=== PATIENT | female | born 1960 | race Caucasian/White ===

== ENCOUNTER → 2017-02-13 | Outpatient (CLI) | payer OTHER ==
[~2017-02-13] VITALS: Ht 167.6 cm; Wt 58.1 kg
[~2017-02-13] MED LIST: ADDERALL 15 MG15 MG PO; ASPIR 8181 MG PO; MAGOX 400400 MG PO; TRAMADOL 50 MG50 MG PO; VITAMIN D1000 UNI1 PO
--- NOTE | ~2017-02-13 | P ---
[facility] [place] [address] PROCEDURE REPORT Name: PONCHO SOUTH V Room [facility]: [facility] [id number] Admission: 02/13/17 Attend Phys: Gunner Clark MD Discharge: Date of : 58 Report #: [id number] THIS REPORT FOR: //name// CC: Gunner Douglas MD BRIEF HISTORY: The patient is a 56-year-old woman with family history of colon cancer in both grandmothers. Multiple first degree relatives had colon polyps and her brother had an advanced adenoma. PREOPERATIVE DIAGNOSIS: Family history of colon cancer and colon polyps. POSTOPERATIVE DIAGNOSES: 1. Multiple colon polyps. 2. Sigmoid diverticulosis coli. MEDICATIONS: Deep sedation with propofol per anesthesia. SPECIMENS: 1. Cecal polyp. 2. Distal ascending colon polyp. 3. Hepatic flexure polyp. ESTIMATED BLOOD LOSS: 3 mL. PROCEDURE: Colonoscopy to cecum and terminal ileum with saline assisted snare polypectomy. FINDINGS: Prior to propofol sedation, the procedure of colonoscopy was discussed with the patient as well as potential risks, benefits, and complications. She indicates she understands and desires to proceed. With the patient in left lateral decubitus position, digital examination was completed, which revealed no abnormalities. Subsequently, the DotAlign video colonoscope was introduced into the rectum and advanced under direct vision to the cecum. Done with minimal difficulty. The cecum was identified by the ileocecal valve and the appendiceal orifice. I was able to visualize the distal segment of terminal ileum, which was inspected and noted to be unremarkable. At that point, the scope was slowly withdrawn and careful circumferential views were obtained. The prep was good. The mucosa was within normal limits, normal vascular pattern, and normal light reflex. As we slowly withdrew the scope, the mucosa was inspected. In the distal aspect of the cecum, a flat oblong 1-cm mucus covered polyp was seen and removed by saline assisted snare polypectomy. The scope was further advanced in the distal ascending colon, another fairly flat polyp was seen, it was about 3 mm x 6 mm and removed by cold snare polypectomy and recovered. Scope was further withdrawn and a 6-8 mm sessile, [facility] [address] [place] [address] PROCEDURE REPORT Name: PONCHO SOUTH V Room #: REG [facility] Lexa.#: [id number] Admission: 02/13/17 Attend Phys: Gunner Clark MD Discharge: Date of : 58 Report #: [id number] mucus covered polyp was seen in the hepatic flexure, removed with several passes with cold and hot snares. Scope was further withdrawn. No additional polyps were seen. It was noted that the colon was mildly diffusely dilated suggesting chronic constipation. Obstructing lesion was not seen. The scope was further withdrawn and she was noted have moderate sigmoid diverticular disease without endoscopic evidence of diverticulitis. Scope was withdrawn in the rectum. Upon retroflexion, no abnormalities were seen. Scope was withdrawn. The patient tolerated the procedure well. CONDITION OF THE PATIENT UPON DISCHARGE: Following procedure, the patient drowsy, aroused, conversant and will be discharged home when fully ambulatory. INSTRUCTIONS TO THE PATIENT AND FAMILY AT THE TIME OF DISCHARGE: The patient with multiple colon polyps as described above. Due to her family history, especially finding of flat polyps, I would suggest followup colon exam in 3 years. I suggest high fiber diet for diverticular disease. Also, for constipation issue, use of MiraLax potentially on a regular basis would be reasonable. By: [id number] Gunner Clark MD /nt
--- NOTE | ~2017-02-13 | S ---
[facility] [place] [address] SURGICAL PATH RPT PROCEDURE Name: PONCHO RODAS V Room #: REG [facility] Lexa.#: [id number] Admission: 02/13/17 Date of : 58 Discharge: Report #: [id number] Path Case #: [id number] PATHOLOGY REPORT COLLECTION DATE: 02/13/2017 RECEIVED DATE: 02/13/2017 SUBMITTING PHYS: Dr. Gunner Clark OTHER PHYS: Dr. Qasim Douglas SPECIMEN(S) RECEIVED: A.Cecal polyp B.Distal ascending colon polyp C.Hepatic flexure polyp * * * * * * * * * * * * FINAL DIAGNOSIS: A. Cecal polyp: - Hyperplastic polyp B. Distal ascending colon polyp: - Tubular adenoma, fragments. - Negative for high grade dysplasia. C. Hepatic flexure polyp: - Hyperplastic polyp. PATHOLOGIST: Qasim Lee M.D. REPORT ELECTRONICALLY SIGNED BY: Qasim Lee M.D. DATE/TIME: 02/14/2017 12:29 * * * * * * * * * * * * GROSS PATHOLOGY: A. The specimen is received in formalin, labeled "Poncho Rodas and cecal polyp", is a whitaker polypoid soft tissue 1.5 x 0.7 x 0.2 cm, inked blue, serially sectioned and entirely submitted in A1. B. The specimen is received in formalin, labeled " Poncho Rodas and distal ascending colon polyp.", are several whitaker soft tissue the aggregate measure 0.7 x 0.4 x 0.2 cm, entirely submitted in B1. C. The specimen is received in formalin, labeled " Poncho Rodas and hepatic flexure polyp", are several whitaker soft tissue the aggregate measure 0.5 x 0.5 x 0.2 cm, entirely submitted in C1. (SWS; 02/13/2017) CLINICAL HISTORY: Family history colon cancer, colon polyps, diverticulosis INITIAL CPT CODE(S): [facility] [address] [place] [address] SURGICAL PATH RPT PROCEDURE Name: PONCHO RODAS V Room #: REG [facility].#: [id number] Admission: 02/13/17 Date of : 58 Discharge: Report #: [id number] Path Case #: [id number]; [id number] B; [id number] C; [id number] Professional services performed by [facility] at [address], [place] [address] Technical services performed by [facility] at [address] [place] [address], [facility] [address] [address]. [facility] [address] [place] [address] PHONE: [phone] DIRECTOR: Rafael Galeana M.D. * * * END OF REPORT * * *
== END | disposition home or self-care (01) ==
LOC: GI 08:16
DX: D12.2 Benign neoplasm of ascending colon (principal); D12.3 Benign neoplasm of transverse colon; K63.5 Polyp of colon; K57.30 Diverticulosis of large intestine without perforation or abscess without bleeding; Z98.890 Other specified postprocedural states; Z96.641 Presence of right artificial hip joint; Z88.5 Allergy status to narcotic agent; Z88.8 Allergy status to other drugs, medicaments and biological substances; Z79.82 Long term (current) use of aspirin
CPT/HCPCS: 62110; 62900

== ENCOUNTER → 2017-03-06 | Outpatient (CLI) | payer OTHER ==
[~2017-03-06] VITALS: Ht 167.6 cm; Wt 58.1 kg
[~2017-03-06] MED LIST changes: +LYRICA 50 MG50 MG PO
--- NOTE | ~2017-03-06 | P ---
[facility] [place] [address] PROCEDURE REPORT Name: PONCHO SOUTH V Room #: REG [facility] [id number] Admission: 03/06/17 Attend Phys: Gunner Clark MD Discharge: Date of : 58 Report #: [id number] THIS REPORT FOR: //name// CC: Gunner Douglas BRIEF HISTORY: The patient is a 56-year-old woman with atypical chest pain. Symptoms started after a recent colonoscopy with retrosternal pain. Recent ultrasound of the gallbladder was nondiagnostic. She has had partial relief of symptoms with intermittent use of PPIs. PREOPERATIVE DIAGNOSES: 1. Atypical chest pain. 2. Intermittent solid food dysphagia. POSTOPERATIVE DIAGNOSES: 1. A 2-3 cm sliding type hiatus hernia. 2. Mild erythematous gastritis without ulcer. 3. Solid food dysphagia without obvious stricturing. MEDICATIONS: Deep sedation with propofol for anesthesia. SPECIMEN: Biopsies of gastritis. ESTIMATED BLOOD LOSS: 3 mL. PROCEDURE: EGD with biopsy, Riggs dilation. FINDINGS: Prior to propofol sedation, the procedure of upper endoscopy and dilation were discussed with the patient as well potential risks and its complications. She indicates she understands and desires to proceed. DESCRIPTION OF PROCEDURE: With the patient in left lateral decubitus position, Fuji video endoscope was inserted in the cervical esophagus under direct vision without difficulty. Examination of this organ through its entire length revealed normal esophageal mucosa down the squamocolumnar junction. Squamocolumnar junction was inspected and noted to be unremarkable. Intermittently, a 3 cm sliding type hiatus hernia was seen. Even though she had a hernia, erosive changes or changes of Winston's were not seen. She has had dysphagia and obvious stricturing was not seen. Scope was advanced in the stomach, was examined on end view as well as retroflexed views. She does have erythema, but no ulcers or erosions. No retained solids or liquids in the stomach. Upon retroflexion, the hiatus hernia was seen, but no mass lesions were seen. The pylorus, duodenal bulb, and postbulbar sweep were all inspected and noted to be within normal limits. At that point, the scope was slowly withdrawn and careful circumferential views confirmed the above findings. The [address] [address] PROCEDURE REPORT Name: PONCHO SOUTH V Room #: REG Patrick Meza#: [id number] Admission: 03/06/17 Attend Phys: Gunner Clark MD Discharge: Date of : 58 Report #: [id number] patient tolerated the procedure well. Following procedure, she was dilated with passage of a 50-Sammarinese Riggs dilator. There was no resistance. CONDITION OF THE PATIENT UPON DISCHARGE: Following procedure, the patient drowsy and arousal. She will be discharged home when fully ambulatory INSTRUCTIONS TO THE PATIENT AND FAMILY AT THE TIME OF DISCHARGE: She does have a hiatus hernia, but I do not see mucosal disease in her esophagus at this time. Based on the symptoms, it would be reasonable to treat her with more intensive PPI therapy on a trial basis of about 4-6 weeks. If she has a good response, she can continue the PPI at the lowest dose to control her symptoms. She also describes radiation of pain into her back from the chest. This would raise a question of biliary disease. She had a negative ultrasound. We will proceed with a PIPIDA scan of the gallbladder for further evaluation of her pain. She also had dysphagia, but a definite stricturing was not seen, she was empirically dilated today. If her symptoms persist and do not resolve, an etiology is not identified, she is to return to see me for followup in the office. <ELECTRONICALLY SIGNED> By: Gunner Clark MD 03/07/17 [id number] [id number] Gunner Clark MD /nt
--- NOTE | ~2017-03-06 | S ---
[facility] [address] [place] [address] SURGICAL PATH RPT PROCEDURE Name: PONCHO SOUTH V Room #: REG TYLER Lindquist.#: [id number] Admission: 03/06/17 Date of : 58 Discharge: Report #: [id number] Path Case #: [id number] PATHOLOGY REPORT DRAFT COLLECTION DATE: 03/06/2017 RECEIVED DATE: 03/07/2017 SPECIMEN(S) RECEIVED: Marielle
== END | disposition home or self-care (01) ==
LOC: GI 06:59
DX: K29.70 Gastritis, unspecified, without bleeding (principal); K44.9 Diaphragmatic hernia without obstruction or gangrene
CPT/HCPCS: 62110; 62900